=== PATIENT | male | born 1975 | race African-American/Black ===

== ENCOUNTER 2021-05-22 23:13 | Emergency (ER) | payer BC ==
[2021-05-22 23:26] VITALS: BP 168/114; PULSE 82; BMI 31.8
[2021-05-22] MEDS ORDERED: DIPHTH,PERTUSS(ACELL),TET 0.5 ML DISP.SYRIN IM ONE (23:34)
== END 2021-05-23 01:10 | disposition home or self-care (01) ==
LOC: JER 23:13
PROC: 3E0234Z Introduction of Serum, Toxoid and Vaccine into Muscle, Percutaneous Approach (ICD-10-PCS; principal; 2021-05-22)
DX: S40.211A Abrasion of right shoulder, initial encounter (principal); X99.1XXA Assault by knife, initial encounter
CPT/HCPCS: 71046-TC-FY; 73030-TC-RT-FY; 90715; 99284-25

== ENCOUNTER 2022-08-21 13:16 | Emergency (ER) | payer BC ==
[2022-08-21 13:28] VITALS: BP 133/85; PULSE 80; RESP 18; TEMP 97.3; BMI 26.1
== END 2022-08-21 16:09 | disposition home or self-care (01) ==
LOC: JERFT 13:16
PROC: 0HQGXZZ Repair Left Hand Skin, External Approach (ICD-10-PCS; principal; 2022-08-21)
DX: S61.412A Laceration without foreign body of left hand, initial encounter (principal); W26.8XXA Contact with other sharp object(s), not elsewhere classified, initial encounter
CPT/HCPCS: 99282-25